=== PATIENT | female | born 1990 | race Caucasian/White ===

== ENCOUNTER 2016-05-16 17:41 | Emergency (ER) | payer OTHER ==
[~2016-05-16] VITALS: Ht 162.6 cm; Wt 65.0 kg
[2016-05-16 17:42] VITALS: BP 124/68; PULSE 71; RESP 15; TEMP 98.2; O2SAT 99
--- NOTE | 2016-05-16 18:03 | PD ---
HPI Chief Complaint: Related Problem Time Seen by Provider: 18:03 Travel History International Travel<30 days: No Contact w/Intl Traveler<30days: No Traveled to known affect area: No History of Present Illness HPI 25-year-old female presents to the ED for evaluation of 3 day history of stabbing, intermittent, lower abdominal pain. Patient states LMP approximately 6 weeks ago. She took 2 at home urine tests that were positive. Patient states that the pain is over both hips, episodes last approximately 30 minutes before resolving spontaneously. Denies abdominal pain on presentation. She denies anorexia, nausea, vomiting, changes in bowel habits , dysuria, urinary urgency, back pain, vaginal discharge, vaginal bleeding or vaginal odor. Patient states her daughter was born SVB at 39 weeks in October 2015. Patient denies chronic health problems, takes no daily medications. NKDA. PFSH Past Medical History Medical History: Denies Significant Hx Asthma: No Blood Disorders: No Heart Rhythm Problems: No Cancer: No Cardiovascular Problems: Yes High Cholesterol: No Chemotherapy: No Chest Pain: No Congestive Heart Failure: No COPD: No Diabetes: No Endocrine: No Gastrointestinal Disorders: No Genitourinary: No Headaches: No Hypertension: No Immune Disorder: No Implanted Vascular Access Dvce: No Musculoskeletal: No Neurologic: No Psychiatric: No Reproductive: No Respiratory: No Radiation Therapy: No Seizures: Yes (2013, while getting blood work done) Sleep Apnea: No Thyroid Disease: No ?: LMP: 03/2016 : 3 Para: 1 Past Surgical History Oral Surgery: Yes Other Surgery: No Social History Alcohol Use: No Tobacco Use: No Substance Use: No Allergies-Medications (Allergen,Severity, Reaction): Coded Allergies: No Known Allergies (Verified , 05/16/16) Reported Meds & Prescriptions Reported Meds & Active Scripts Active No Active Prescriptions or Reported Medications Review of Systems Except as stated in HPI: all other systems reviewed are Neg Physical Exam Narrative GENERAL: Well-nourished, well-developed white female in no acute distress. SKIN: Warm and dry. HEAD: Normocephalic. EYES: No scleral icterus. No injection or drainage. NECK: Supple, trachea midline. No JVD or lymphadenopathy. CARDIOVASCULAR: Regular rate and rhythm without murmurs, gallops, or rubs. RESPIRATORY: Breath sounds clear and equal bilaterally. No accessory muscle use. GASTROINTESTINAL: Abdomen soft, non-tender, nondistended. Active bowel sounds. No suprapubic tenderness. MUSCULOSKELETAL: No cyanosis, or edema. Patient is ambulatory and moves easily from sitting to standing positions. BACK: Nontender without obvious deformity. No CVA tenderness. Data Data Last Documented VS Vital Signs Date Time Temp Pulse Resp B/P Pulse Ox O2 Delivery O2 Flow Rate FiO2 05/16/16 20:33 70 18 124/68 98 Room Air 05/16/16 17:42 98.2 Orders Urinalysis - C+S If Indicated (05/16/16 17:46) Ed Urine Pregnancytest Poc (05/16/16 17:46) Beta Hcg (Quant/Titer) (05/16/16 18:02) Us Pelvis (Ques Pr/Ect)W Trans (05/16/16 ) Labs Laboratory Tests Test 05/16/16 05/16/16 17:56 18:25 Urine Color YELLOW Urine Turbidity HAZY Urine pH 5.5 Urine Specific [place] 1.018 Urine Protein NEG mg/dL Urine Glucose (UA) NEG mg/dL Urine Ketones TRACE mg/dL Urine Occult Blood NEG Urine Nitrite NEG Urine Bilirubin NEG Urine Urobilinogen LESS THAN 2.0 MG/DL Urine Leukocyte Esterase SMALL Urine RBC 1 /hpf Urine WBC 1 /hpf Urine Squamous Epithelial 2 /hpf Cells Microscopic Urinalysis Comment CULT NOT INDICATED Human Chorionic Gonadotropin, 1602 MIU/ML Quant MDM Medical Decision Making Medical Screen Exam Complete: Yes Emergency Medical Condition: Yes Differential Diagnosis IUP versus ectopic versus cystitis versus pyelonephritis versus ovarian cyst versus other Narrative Course 25-year-old female presents to the ED for evaluation of 3 day history of stabbing, intermittent, lower abdominal pain. Patient states LMP approximately 6 weeks ago. 2 positive urine test at home. Patient states that the pain is over both hips, episodes last approximately 30 minutes before resolving spontaneously. Denies abdominal pain on presentation. She denies anorexia, nausea, vomiting, changes in bowel habits, dysuria, urinary urgency, back pain, vaginal discharge, vaginal bleeding or vaginal odor. Vitals reviewed. Abdominal exam benign. Urine test positive in the ED. Beta hCG 1602. Transvaginal ultrasound reveals cystic mass in the uterus, too small to characterize as definite IUP. Right ovarian cyst also noted. The patient was provided a copy of her CT results. She is instructed to follow-up in 5 days for serial beta hCG, sooner if symptoms worsen or vaginal bleeding or spotting occurs. The patient indicated understanding of the instructions, is amenable to plan of care. She stable discharged home. Diagnosis Primary Impression: Early stage of Additional Impressions: Abdominal pain during Qualified Code: O26.891 - Abdominal pain during , first trimester Ovarian cyst Qualified Code: N83.209 - Cyst of ovary, unspecified laterality Referrals: Legal Administrative Secretary Patient Instructions: Abdominal Pain in (ED), First Trimester (ED), General Instructions Additional Instructions: Rest, hydrate. Begin vitamins. Beta Hcg 1602 today. Should be followed by OB or in the ED in 5 days. Establish care with an OB provider as soon as possible. Return to the ED for worsening of symptoms, vaginal bleeding, as discussed. Return to the ED for any urgent or emergent medical condition. Scripts No Active Prescriptions or Reported Meds Disposition: 01 DISCHARGE HOME Condition: Stable Cindy Lo May 16, 2016 18:03
[2016-05-16 18:32] LABS: BLOOD, URINE NEG (NEG); COMMENT (UR) CULT NOT INDICATED; CULTURE IF INDICATED CULT NOT INDICATED; GLUCOSE,URINE NEG (NEG); KETONE, URINE TRACE mg/dL (NEG); NITRITE,URINE NEG (NEG); PH, URINE 5.5 (5.0-8.5); SQUAMOUS EPITHELIAL CELL URINE 2 /hpf (0-5); URINE COLOR YELLOW (YELLW/STRAW)
[2016-05-16 19:21] LABS: BETA HCG QUANT 1602 MIU/ML (0-5)
--- NOTE | 2016-05-16 20:16 | RADRPT ---
EXAM DATE/TIME: 05/16/2016 18:37 [facility] COMPARISON: No previous studies available for comparison. INDICATIONS : Pain. LAB(S): Beta-hC MEDICAL HISTORY : History of seizures. Cardiac disorders. Caffeine use. SURGICAL HISTORY : Oral surgery. ENCOUNTER: Initial ACUITY: 3 days PAIN SCORE: 8/10 LOCATION: Bilateral pelvis MEASUREMENTS: UTERUS: 7.2 x 5.8 x 4.3 cm ENDOMETRIAL STRIPE: 14 mm RIGHT OVARY: 3.1 x 2.4 x 1.7 cm LEFT OVARY: 2.8 x 2.2 x 2.1 cm FINDINGS: UTERUS: The myometrium has homogeneous echotexture without mass. Small cystic area in the endometrium measur es 3 x 2 x 3 mm. RIGHT OVARY: Minimally complex cystic lesion measures 3.0 x 1.6 x 1.6 cm. LEFT OVARY: Ovary contains no mass or significant cystic lesion. MISCELLANEOUS: No free fluid. CONCLUSION: 1. Small cystic area in the uterus could be related to a very early gestational sac. No yolk sac or f etal pole seen at this time. Close interval followup. 2. Minimally nonspecific complex cystic structure right ovary measures 3.0 cm. Rizwan Reece MD on May 16, 2016 at 20:13 Board Certified Radiologist. This report was verified electronically.
[2016-05-16 20:33] VITALS: BP 124/68; PULSE 70; RESP 18; O2SAT 98
== END 2016-05-16 20:34 | disposition home or self-care (01) ==
LOC: NEPB 17:41
DX: O26.891 Other specified pregnancy related conditions, first trimester (principal); R10.30 Lower abdominal pain, unspecified; N83.209 Unspecified ovarian cyst, unspecified side
CPT/HCPCS: 76700; 76817; 81001; 84702; 84703